=== PATIENT | male | born 1985 | race Caucasian/White ===

== ENCOUNTER 2017-01-17 15:14 | Emergency (ER) | payer OTHER ==
[~2017-01-17] VITALS: Ht 175.3 cm; Wt 61.9 kg
[2017-01-17] MEDS ORDERED: KETOROLAC 60 MG/2 ML (TORADOL) VIAL IM ONE (15:40)
[2017-01-17 15:57] LABS: MEAN CORPUSCULAR HEMOGLOBIN 30.6 PG (26.0-34.0); MEAN CORPUSCULAR HGB CONC 35.4 g/dL (31.0-37.0); MEAN PLATELET VOLUME 12.1 FL (6.0-9.5); WHITE BLOOD COUNT 6.96 10^3uL (4.0-11.0)
[2017-01-17 16:18] LABS: ANION GAP 14.5 MEQ/L (3-15); BUN/CREATININE RATIO 17 (10-20)
[2017-01-17 16:39] VITALS: BP 111/61
== END 2017-01-17 16:45 | disposition home or self-care (01) ==
LOC: ED 15:17
DX: R07.89 Other chest pain (principal)
CPT/HCPCS: 36415; 71020; 80048; 84484; 85027; 93005; 96372; 99283; J1885; 93010; 99284